=== PATIENT | male | born 1940 | race Caucasian/White ===

== ENCOUNTER 2018-06-30 07:52 | Outpatient (CLI) ==
[2016-03-24 14:56] VITALS: BMI 28.0
--- NOTE | 2018-06-30 08:45 | CT ---
Exam: CT abdomen without contrast. HISTORY: Mid abdominal pain and left flank pain. Prior cholecystectomy. Procedures: contiguous axial images were obtained through the abdomen the lung bases to the iliac c rests without the use of intravenous or oral contrast. Sagittal and coronal reformatted images were also created and reviewed. Imaging of the pelvis was not performed per request. Comparison: CT abdomen and pelvis 03/24/2016. Findings: Evaluation of the soft tissues is limited without use of intravenous or oral contrast. Th ere is redemonstration of mild atelectasis or scarring in the posterior right lung base. Pulmonary e mphysematous disease is again noted. In the left lateral costophrenic angle there is a 6.7 mm pulmon adam nodule which appears increased from 2.7 mm previously. Atherosclerotic disease is noted in the c oronary arteries. Surgical clips are seen in the gallbladder fossa. The liver, spleen, pancreas and adrenal glands appear stable from prior. There is redemonstration of a10 mm left adrenal nodule briana suring minus 10 HU in attenuation. There is redemonstration of a right adrenal nodule measuring appr oximately 19 mm x 14 mm and -2 Hounsfield units in attenuation. The kidneys are symmetric in size. There are small calcifications in each kidney which may be vascular, these appear stable from prior. There is no hydronephrosis or hydroureter. No apparent renal mass is seen. The unopacified stomach and the visualized portions of small bowel demonstrate no dilatation or inflammation. The appendix does not appear dilated or inflamed. The visualized portions of the colon do not appear dilated or i nflamed. There is no free air, free fluid or lymphadenopathy identified involving the abdomen or pel vis. Atherosclerotic disease is noted, the abdominal aorta measures up to 3.7 cm x 3.7 cm compared to 3.6 cm x 3.3 cm previously. Bone windows demonstrate degenerative findings in the spine with mild levoscoliosis. Impressions: 6.7 mm pulmonary nodule in the left lateral costophrenic angle, increased from 2.7 mm o n the 03/24/2016 CT. Please refer to Fleischner Society recommendations below for nodule follow-up. Abdominal aortic aneurysm measuring up to 3.7 cm x 3.7 cm compared to 3.6 cm x 3.3 cm previously. No nephrolithiasis or hydronephrosis. 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 Prior cholecystectomy. Pulmonary emphysematous disease.
== END 2018-06-30 07:53 | disposition home or self-care (01) ==
LOC: RAD 07:52
DX: R10.9 Unspecified abdominal pain (principal)

== ENCOUNTER 2018-07-07 09:57 | Outpatient (CLI) ==
[2016-03-24 14:56] VITALS: BMI 28.0
--- NOTE | 2018-07-07 10:44 | CT ---
EXAM: CT of the chest without contrast History: Follow-up left lung nodule. Comparison: CT abdomen 06/30/2018, chest CT 03/24/2016 Technique: Multiplanar CT images through the thorax were obtained without the administration of IV c ontrast Findings: Heart size is normal. Coronary calcifications. Trace pericardial fluid or thickening. N o axillary lymphadenopathy. No pathologically enlarged mediastinal lymph nodes. Evaluation for francisco r lymph nodes is limited due to the lack of contrast administration. Emphysema. Diffuse bronchial wal l thickening with mucous plugging in the right lower lobe and mild right lower lobe infiltrate. There are several new bilateral lung nodules with the largest in the right lung seen in the right middle l obe measuring 1.3 cm and the largest in the left lung seen in the left lower lobe measuring 0.8 cm. Within the visualized upper abdomen, status post cholecystectomy. No acute osseous abnormalities. Impression: New bilateral lung nodules suspicious for malignancy. Biopsy recommended.
== END 2018-07-07 09:58 | disposition home or self-care (01) ==
LOC: RAD 09:57
DX: R91.1 Solitary pulmonary nodule (principal)

== ENCOUNTER 2018-10-06 11:55 | Outpatient (CLI) ==
[2016-03-24 14:56] VITALS: BMI 28.0
== END 2018-10-06 11:56 | disposition home or self-care (01) ==
LOC: LAB 11:55
PROVIDERS: ATTEND Anesthesiology
DX: Z51.81 Encounter for therapeutic drug level monitoring (principal); R91.8 Other nonspecific abnormal finding of lung field; F10.10 Alcohol abuse, uncomplicated; R93.89 Abnormal findings on diagnostic imaging of other specified body structures
CPT/HCPCS: 36415; 80053; 85025; 85610; 85730

== ENCOUNTER 2019-01-09 11:49 | Emergency (ER) | payer OTHER ==
[2019-01-09 13:06] VITALS: BP 155/74; TEMP 96.1; BMI 22.9
--- NOTE | 2019-01-09 14:19 | ED.PDOC ---
General ED Provider: Dr. ANAND FARIAS Chief Complaint: Constipation Stated Complaint: IVno BM x 3 days.78 y ols gentleman complaining for no BM x 3 days.He anticipates difficulty based on his own impression of not taking enough stool softeners.IVNS started and Metronidazole 250 IV before manual disimpaction attempt,Based on CT returned report 7.8 cm distension of rectal ampulla and secondary bowel obstruction present.Patient will be presented for an admission after,Please,review the CT report. . Time Seen by Physician: 14:48 Mode of Arrival: Walk-In Information Source: Patient, Family Exam Limitations: No limitations Primary Care Provider: LUCIANA HOWARD Nursing and Triage Documentation Reviewed and Agree: Yes Does patient meet sepsis criteria?: No System Inflammatory Response Syndrome: Not Applicable Sepsis Protocol: For patient's 13 years and over: Temp is 96.8 and below OR 101 and greater Pulse >90 BPM Resp >20/minute Acutely Altered Mental Status Are patient's symptoms suggestive of a new infection, such as: -Pneumonia -Skin, Soft Tissue -Endocarditis -UTI -Bone, Joint Infection -Implantable Device -Acute Abdominal Infection -Wound Infection -Meningitis -Blood Stream Catheter Infection -Unknown GI Complaint Exam - Abdominal Pain Complaint/Exam Duration: ongoing Symptoms Are: Still present Timing: Constant Initial Severity: Moderate Current Severity: Moderate Location of Pain: Diffuse Character: Reports: Dull Aggravating: Reports: None Alleviating: Reports: Position Associated Signs and Symptoms: Reports: Decreased activity Related History: Reports: Similar episode AAA Risk Factors: Reports: Hypertension Cardiac Risk Factors: Reports: Hypertension Testicular Torsion Risk Factors: Reports: None Related Surgical History: Reports: None Abdominal Findings: Present: Abdominal distention Genitalia Exam: Present: Normal findings Rectal Exam: Present: Normal Findings Prostate Exam: Nontender Differential Diagnoses: Bowel Obstruction, Pneumonia, BPH Quality Indicators for Cardiac Chest Pain: EKG in 10min. Review of Systems - Review Of Systems Constitutional: Reports: No symptoms Eyes: Reports: No symptoms Ears, Nose, Mouth, Throat: Reports: No symptoms Respiratory: Reports: No symptoms Cardiac: Reports: No symptoms GI: Reports: No symptoms : Reports: No symptoms Musculoskeletal: Reports: No symptoms Skin: Reports: No symptoms Neurological: Reports: No symptoms Endocrine: Reports: No symptoms Hematologic/Lymphatic: Reports: No symptoms All Other Systems: Reviewed and Negative Past Medical History - Past Medical History Endocrine: Reports: None Cardiovascular: Reports: Hypertension Respiratory: Reports: None Hematological: Reports: None Gastrointestinal: Reports: None Genitourinary: Reports: None Neuro/Psych: Reports: None Musculoskeletal: Reports: Arthritis, Back Pain Cancer: Reports: None Other Pertinent Past Medical History: AAA 4 cm, neuropathy - Surgical History General Surgical History: Reports: Cholecystectomy - Family History Family History: Reports: Unknown - Social History Smoking Status: Current some day smoker Hx Substance Use: No Alcohol Screening: Occasionally Physical Exam - Physical Exam Appearance: Well-appearing Ill-appearing: Mild Pain Distress: Mild Eyes: KAREN ENT: Ears normal Neck: Supple Respiratory: Airway patent Cardiovascular: RRR, Pulses normal, No rub GI/: Tender, Bowel sounds hyperactive Musculoskeletal: Normal strength Skin: Warm, Dry Neurological: Sensation intact, Motor intact, Reflexes intact, Cranial nerves intact, Alert Psychiatric: Affect appropriate Re-Evaluation - Re-Evaluation Time of Re-Evaluation: 20:18 Physician Notification - Case Discussed Physician Notified: Dr Colt PERALTA Time of Notification: 20:37 (Pt was opffered to go to [facility] however he decided to try Fleets again at home and return if needed) Critical Care Note - Critical Care Note Total Time (mins): 0 Course - Course Hematology/Chemistry: 01/09/19 15:13 01/09/19 15:13 Orders, Labs, Meds: Lab Review 01/09/19 01/09/19 01/09/19 15:13 15:13 17:20 WBC 11.84 H RBC 4.06 L Hgb 11.6 L Hct 34.5 L MCV 85.0 MCH 28.6 MCHC 33.6 RDW Coeff of Kristy 13.8 Plt Count 257 Immature Gran % (Auto) 1.1 Neut % (Auto) 66.8 Lymph % (Auto) 15.6 Carbon % (Auto) 14.7 H Eos % (Auto) 1.5 Baso % (Auto) 0.3 Immature Gran # (Auto) 0.1 Neut # (Auto) 7.9 H Lymph # (Auto) 1.9 Carbon # (Auto) 1.7 Eos # (Auto) 0.2 Baso # (Auto) 0.0 Sodium 130.5 L Potassium 4.16 Chloride 93.9 L Carbon Dioxide 25.8 Anion Gap 14.96 BUN 9.7 Creatinine 0.64 Estimated GFR (MDRD) 121.00 BUN/Creatinine Ratio 15.15 Glucose 106.5 H Calcium 9.50 Total Bilirubin 0.55 AST 18.6 ALT 11.3 Alkaline Phosphatase 107.4 Total Protein 7.57 Albumin 4.76 Globulin 2.81 Albumin/Globulin Ratio 1.69 Urine Color Yellow Urine Clarity Clear Urine pH 6.0 Ur Specific [place] 1.010 Urine Protein Negative Urine Glucose (UA) Negative Urine Ketones Negative Urine Blood Trace-intact Urine Nitrite Negative Urine Bilirubin Negative Urine Urobilinogen 0.2 Ur Leukocyte Esterase Negative Urine Microscopic RBC 0-2 Ur Squamous Epith Cells Not present Orders Category Date Time Status IV [ED IV/MEDIPORT/POWERPORT] .ONCE EMERGENCY 01/09/19 19:37 Active CBC W/ AUTO DIFF Stat LAB 01/09/19 15:13 Completed COMPREHENSIVE METABOLIC PANEL Stat LAB 01/09/19 15:13 Completed URINALYSIS C & S IF INDICATED Stat LAB 01/09/19 17:20 Completed 0.9 % Sodium Chloride [Saline Flush] MEDS 01/09/19 19:37 Ordered 1 syr IVF PRN PRN Metronidazole/Sodium Chloride [Flagyl 500 mg/100 ml] MEDS 01/09/19 19:59 Discontinued 100 ml IV .STK-MED Metronidazole/Sodium Chloride [Flagyl 500 mg/100 ml] MEDS 01/09/19 19:39 Discontinued 250 mg Premix 100 ml Ns 1 bag IV ONCE Sodium Chloride 0.9% [Sodium Chloride] 500 ml MEDS 01/09/19 19:38 Active IV 125 mls/hr CT ABDOMEN/PELVIS WO CONTRAST Stat RADS 01/09/19 14:56 Completed Medications Generic Name Dose Route Start Last Admin Trade Name Freq PRN Reason Stop Dose Admin Sodium Chloride 500 mls @ 125 mls/hr 01/09/19 19:38 Sodium Chloride IV 01/09/19 23:37 .Q4H STA Sodium Chloride 1 syr 01/09/19 19:37 Saline Flush IVF PRN PRN To flush IV Discontinued Medications Generic Name Dose Route Start Last Admin Trade Name Freq PRN Reason Stop Dose Admin Metronidazole 250 mg/ Sodium 50 mls @ 100 mls/hr 01/09/19 19:39 Chloride IV 01/09/19 20:08 ONCE STA Vital Signs: Temp Pulse Resp BP Pulse Ox 01/09/19 13:03 96.1 F L 64 20 155/74 H 93 L Departure - Departure Time of Disposition: 20:39 Disposition: HOME SELF-CARE Discharge Problem: Fecal impaction in rectum Instructions: Fleet Enema (ED) Condition: Good Pt referred to PMD for follow-up: Yes (Pt decided to try fleets at home and return if needed) IPMP verified?: No Additional Instructions: Fleets enema x3 prn Allergies/Adverse Reactions: Allergies No Known Allergies Allergy (Unverified 03/24/16 14:59) Home Medications: Ambulatory Orders Gabapentin 600 mg PO TID 03/24/16 Tamsulosin HCl [Flomax] 1 cap PO DAILY 03/24/16 Amlodipine Besylate 10 mg PO DAILY 01/09/19 Famotidine 20 mg PO BID 01/09/19 Hydrocodone Bit/Acetaminophen [Prosperity 10-325] 1 each PO Q8HR PRN 01/09/19 Metoprolol Tartrate 12.5 mg PO BID 01/09/19 Sennosides [Senna Lax] 2 tab PO DAILY 01/09/19 Disposition Discussed With: Patient, Family
--- NOTE | 2019-01-09 15:47 | CT ---
EXAM: CT ABDOMEN AND PELVIS HISTORY: Lack of recent bowel movement TECHNIQUE: CT abdomen and pelvis without intravenous contrast. Images were reconstructed using 5 mm section thickness. Reformations were prepared. COMPARISON: 06/30/2018 FINDINGS: Diagnostic limitations may exist without including contrast enhanced images. No focal hepatic lesion s identified. Spleen within normal limits. Gallbladder is absent. Pancreas is unremarkable. Redem onstration of fatty enlargement of the adrenal glands. No hydronephrosis or evidence of ureteral obs truction. Severe atherosclerotic disease. Fusiform aneurysmal caliber of the infrarenal aorta at 3. 5 cm which is stable allowing for differences in measuring technique. Stomach is unremarkable. An appendix is not seen. The colon is redundant. There is excess fecal re tention within the rectal vault distending the rectum to about 7.8 cm. Excess fecal retention is see n within the right colon. Multiple loops of fluid and gaseous distended mid abdominal small bowel wi th scattered air-fluid levels. Urinary bladder is moderately distended which is nonspecific and may be secondary to lack of recent micturition. Correlate clinically for any evidence of bladder outlet obstruction. No evidence of prostate enlargement. There is no ascites. No ventral hernia. The bones reveal no acute abnormality. Lung bases demonstrate a tiny right pleur al effusion with some adjacent atelectasis. There is chronic interstitial change within the lung bas es. No pneumoperitoneum IMPRESSION: 1. Fecal impaction of the rectum with early secondary bowel obstruction. 2. Moderately distended urinary bladder. Correlate clinically for any evidence of bladder outlet ob struction. 3. Severe atherosclerosis. Stable aneurysmal dilatation of the infrarenal aorta. 4. Small right pleural effusion.
[2019-01-09] MEDS ORDERED: SODIUM CHLORIDE 500 ML IV STA (19:38)
[2019-01-09] MEDS ORDERED: FLAGYL 500 MG/100 ML 250 MG in PREMIX 100 ML NS 1 BAG IV STA (19:39)
[2019-01-09] MEDS ORDERED: FLAGYL 500 MG/100 ML 100 ML IV ONE (19:59)
== END 2019-01-09 22:50 | disposition home or self-care (01) ==
LOC: ED 11:49
DX: K56.41 Fecal impaction (principal); I10 Essential (primary) hypertension; F17.210 Nicotine dependence, cigarettes, uncomplicated
CPT/HCPCS: 36415; 80053; 81001; 85025; 96361; 96365; 99283

== ENCOUNTER 2019-04-27 06:48 | Day surgery (SDC) | payer OTHER ==
[2019-04-27] MEDS: TETRACAINE 0.5% UNIT-DOSE OP PRN ×5 (07:12→08:58)
[2019-04-27] MEDS: CYCLOGYL 2% OPTH OP PRN ×3 (07:12→07:22)
[2019-04-27] MEDS: AK-DILATE 10% OPTH SOL OP PRN ×3 (07:13→07:23)
[2019-04-27] MEDS ORDERED: OCUSOFT LID SCRUB PLUS TP PRN (07:31)
[2019-04-27] MEDS ORDERED: DIAMOX PO STA (07:31)
[2019-04-27] MEDS: LIDOCAINE 1% 20 ML MDV ID STA ×3 (07:39→08:58)
[2019-04-27] MEDS ORDERED: SUBLIMAZE ONE (08:50)
[2019-04-27] MEDS ORDERED: VERSED ONE (08:50)
[2019-04-27 09:53] VITALS: BP 142/66; TEMP 97.3
[2019-04-27] MEDS ORDERED: DIAMOX ONE (10:23)
[2019-04-27] MEDS ORDERED: DIAMOX PO ONE (10:23)
[2019-04-27] MEDS ORDERED: BSS WITH EPINEPHRINE OP ONE (14:18)
[2019-04-27] MEDS ORDERED: BETADINE OPTH PREP OP ONE (14:22)
--- NOTE | 2019-04-28 09:09 | OP ---
PREOPERATIVE DIAGNOSIS: VISUALLY SIGNIFICANT CATARACT, LEFT EYE. POSTOPERATIVE DIAGNOSIS: SAME. OPERATION PHACOEMULSIFICATION ASPIRATION OF CATARACT LEFT EYE. PLACEMENT OF POSTERIOR CHAMBER LENS. PHACO TIME 1:08.7 SECONDS AT 9.0% POWER. LENS MODEL TECNIS [id number]. DIOPTER +18.5D. TECHNIQUE: CLEAR CORNEA. ANESTHESIA: TOPICAL ANESTHESIA W/ANESTHESIA MONITORING. OPERATIVE REPORT: Topical anesthesia consisting of Tetracaine was applied to the cornea and Xylocaine Methyl Paraben free of MFP was injected intracamerally into the anterior chamber. The patient was then brought into the operating room , prepped and draped in the usual ophthalmic manner. A lid speculum was placed and the operating microscope was used. A paracentesis was made at the 3 o' clock position. A clear corneal incision was made just out to the limbus. The anterior chamber was entered just inside the clear cornea. Viscoelastic was injected into the anterior chamber. A capsulotomy was performed with a bent # 27 gauge needle. Phacoemulsification was then performed in the posterior chamber. After completion of the phacoemulsification, residual cortical material was aspirated with the irrigation-aspiration system. The posterior capsule was polished. Viscoelastic was injected into the anterior and posterior chambers to inflate the capsular bag. Lens were placed via an Unfolder system and stabilized in the bag. Viscoelastic was removed from the anterior chamber. The wound was checked for any leakage. The four sponges were removed from the fornix. Topical antibiotic steroid and nonsteroidal drops were also applied to the cornea. A Powers shield was applied. The patient left the operating room in good condition without any complications. INTRAOPERATIVE MEDICATIONS: Xylocaine Methyl Paraben Free MPF ADDENDUM: Iris I-Ring - the patient is on Flomax. MTDD
== END 2019-04-27 10:40 | disposition home or self-care (01) ==
LOC: SURG 06:48
PROVIDERS: ATTEND Ophthalmology
DX: Z96.1 Presence of intraocular lens (principal); H26.9 Unspecified cataract